=== PATIENT | male | born 1960 | race Caucasian/White ===

== ENCOUNTER 2022-02-18 14:33 | Emergency (ER) | payer MEDICARE ==
[~2022-02-18] VITALS: Ht 175.3 cm; Wt 104.3 kg
[2022-02-18 14:39] VITALS: BP 138/81
--- NOTE | 2022-02-18 15:39 | NUR ---
AAO/Appropriate/responsive GCS-15. +mobility issues/remains in WC 2dary to pain await MD scott. Pt Made aware of plan of care
[2022-02-18] MEDS ORDERED: oxyCODONE/APAP (5/325 MG) 1 UDTAB TABLET PO ONE (16:00)
[2022-02-18] MEDS ORDERED: KETOROLAC TROMETHAMINE INJ 60 MG/2 ML VIAL IM ONE (16:00)
[2022-02-18] MEDS ORDERED: KETOROLAC TROMETHAMINE INJ 30 MG/ML VIAL ONE (17:14)
[2022-02-18] MEDS ORDERED: oxyCODONE/APAP (5/325 MG) 1 UDTAB TABLET ONE (17:14)
--- NOTE | 2022-02-18 17:22 | NUR ---
Patient discharged to home in stable condition. Written and verbal after care instructions given. Patient verbalizes understanding of instruction.
== END 2022-02-18 17:22 | disposition home or self-care (01) ==
LOC: ER 14:38
DX: M25.561 Pain in right knee (principal); Z60.2 Problems related to living alone
CPT/HCPCS: 99283; 96372; J1885